=== PATIENT | female | born 1940 | race Caucasian/White ===

== ENCOUNTER → 2016-12-04 | Outpatient (CLI) | payer MEDICARE, OTHER | LOC: GMAL 12:54 | PROVIDERS: ATTEND Family Medicine | DX: D51.3 Other dietary vitamin B12 deficiency anemia (principal); E55.9 Vitamin D deficiency, unspecified ==

== ENCOUNTER → 2017-08-05 | Outpatient (CLI) | payer MEDICARE, OTHER ==
--- NOTE | 2017-08-05 15:56 | US ---
EXAM DESCRIPTION: Liver CLINICAL HISTORY: 77 years, Female, ELEVATED LFT COMPARISON: FINDINGS: Gallbladder normal without stones or wall thickening. Common bile duct 2 mm. Ducts not dilated. Liver 14.6 cm in length with normal echotexture. Pancreas poorly visualized. Visualized portion of body and head unremarkable. Visualized IVC unremarkable. Right kidney 9.6 cm. IMPRESSION: Normal hepatic ultrasound. Gallbladder and biliary system appear unremarkable Electronically signed by: Michele Bernard MD 08/05/2017 3:55 PM CLAIM INSPECTOR
== END | disposition home or self-care (01) ==
LOC: US 08:51
PROVIDERS: ATTEND Family Medicine
DX: R94.5 Abnormal results of liver function studies (principal)

== ENCOUNTER → 2017-08-07 | Outpatient (CLI) | payer MEDICARE, OTHER | LOC: LAB.O 11:01 | PROVIDERS: ATTEND Family Medicine | DX: R74.8 Abnormal levels of other serum enzymes (principal) ==

== ENCOUNTER → 2018-05-28 | Outpatient (CLI) | payer MEDICARE, OTHER | LOC: GMAL 11:23 | PROVIDERS: ATTEND Family Medicine | DX: D51.3 Other dietary vitamin B12 deficiency anemia (principal); R53.83 Other fatigue; E55.9 Vitamin D deficiency, unspecified ==

== ENCOUNTER → 2019-08-04 | Outpatient (CLI) | payer MEDICARE, OTHER | LOC: GMAL 10:43 | PROVIDERS: ATTEND Family Medicine | DX: D51.3 Other dietary vitamin B12 deficiency anemia (principal); R53.83 Other fatigue; E55.9 Vitamin D deficiency, unspecified; I10 Essential (primary) hypertension; E78.49 Other hyperlipidemia; R94.5 Abnormal results of liver function studies ==

== ENCOUNTER → 2019-09-02 | Outpatient (CLI) | payer MEDICARE, OTHER ==
--- NOTE | 2019-09-05 08:18 | US ---
EXAM DESCRIPTION: Liver: ULTRASOUND. CLINICAL HISTORY: ABNORMAL RESULTS OF LIVER FUNCTION STUDIES COMPARISON: Ultrasound liver July 2017. TECHNIQUE: Transabdominal scannin-dimensional and Doppler modes. FINDINGS: Gallbladder: normal size, shape, echogenicity; no intraluminal stones or sludge. No fluid around the gallbladder. No wall thickening. 1.8 mm. Non-tender with transducer pressure. Common bile duct: caliber 2.7 mm within normal limits. Liver: normal echogenicity; contour liver capsule smooth where seen. No fluid around the liver. Intrahepatic biliary ducts normal caliber. Doppler hepatopedal flow portal vein. xxx Long axis right lobe 15 cm. Pancreas: Heterogeneous pancreas with hypoechoic regions. Duct not dilated. Right kidney: long axis measures 10.4 cm. Normal cortical echogenicity. Normal cortical thickness. No echogenic stones or hydronephrosis. Aorta proximal: 1.8 cm normal caliber. IMPRESSION: 1. Normal size and echogenicity of the liver. No other abnormalities. 2. Pancreas is heterogeneous with hypoechoic regions but no definite cysts. Duct not dilated. If clinical indication for pancreatic disease, consider CT scan without and with IV contrast. 3. Gallbladder, common bile duct, and right kidney are unremarkable. Normal caliber of the proximal aorta and IVC. Electronically signed by: Miguel Shin MD 09/05/2019 8:17 AM SUPERVISOR [employer]
== END ==
LOC: US 08:00
PROVIDERS: ATTEND Family Medicine
DX: R94.5 Abnormal results of liver function studies (principal)

== ENCOUNTER → 2019-09-22 | Outpatient (CLI) | payer MEDICARE, OTHER | LOC: LAB.O 09:39 | DX: G70.01 Myasthenia gravis with (acute) exacerbation (principal) ==

== ENCOUNTER → 2020-06-18 | Outpatient (CLI) | payer MEDICARE, OTHER | LOC: LAB.O 08:43 | PROVIDERS: ATTEND Psychiatry & Neurology Neurology | DX: G70.01 Myasthenia gravis with (acute) exacerbation (principal) ==

== ENCOUNTER → 2020-08-13 | Outpatient (CLI) | payer MEDICARE, OTHER | LOC: GMAL 10:53 | PROVIDERS: ATTEND Family Medicine | DX: D51.3 Other dietary vitamin B12 deficiency anemia (principal); R53.83 Other fatigue; E55.9 Vitamin D deficiency, unspecified; I10 Essential (primary) hypertension; E78.49 Other hyperlipidemia ==